=== PATIENT | female | born 1970 | race African-American/Black ===

== ENCOUNTER 2016-08-03 18:44 | Emergency (ER) | payer MEDICAID, OTHER ==
[~2016-08-03] VITALS: Ht 170.2 cm; Wt 109.2 kg
[~2016-08-03 18:44] MED LIST: NAPR500 PO
[2016-08-03 18:58] VITALS: BP 115/72; PULSE 91; RESP 16; TEMP 98.6; O2SAT 99
[2016-08-03 19:37] LABS: BLOOD, URINE NEG (NEG); GLUCOSE,URINE NEG (NEG); KETONE, URINE NEG (NEG); NITRITE,URINE NEG (NEG)
[2016-08-03 19:49] LABS: BACTERIA, URINE RARE /hpf; COMMENT (UR) CULT NOT INDICATED; CULTURE IF INDICATED CULT NOT INDICATED; RBC, URINE 0-3 /hpf (0-3); URINE COLOR YELLOW (YELLW/STRAW)
[2016-08-03] MEDS ORDERED: VITA500C9 CHEW (20:27)
[2016-08-03] MEDS ORDERED: MULTTAB67 PO (20:27)
[2016-08-03] MEDS ORDERED: CALC1WAF CHEW (20:27)
[2016-08-03] MEDS ORDERED: FERR1TAB36 PO (20:33)
[2016-08-03] MEDS ORDERED: VITA10002 PO (20:33)
[2016-08-03] MEDS ORDERED: NEXI20CA PO (20:33)
[2016-08-03] MEDS ORDERED: FOLI400T PO (20:33)
--- NOTE | 2016-08-03 20:35 | PD ---
HPI Chief Complaint: Flank/Kidney Pain Time Seen by Provider: 20:25 Travel History International Travel<30 days: No Contact w/Intl Traveler<30days: No Traveled to known affect area: No History of Present Illness HPI 46-year-old female complains of left flank pain. Patient states the pain started a week ago and is worse for the past 2 days. Patient states the pain is sharp pain localized to left flank area. Patient denies any pain radiation. She denies any nausea vomiting diarrhea. Patient denies any dysuria or frequency. Patient denies any vaginal discharge or bleeding. Patient states the pain is worse with movement. Patient states that the pain radiate down to the left hip area. On a scale of 1-10 the pain is an 8. PFSH Past Medical History Medical History: Denies Significant Hx Diminished Hearing: No Tetanus Vaccination: Unknown Influenza Vaccination: No ?: Not : 5 Para: 5 Past Surgical History Hysterectomy: Yes Social History Alcohol Use: No Tobacco Use: No Substance Use: No Allergies-Medications (Allergen,Severity, Reaction): Coded Allergies: Percocet (Verified Allergy, Mild, hives, 08/03/16) Reported Meds & Prescriptions Reported Meds & Active Scripts Active Reported Nexium (Esomeprazole DR) 20 Mg Capdr 20 Mg PO DAILY PRN Vitamin B-12 (Cyanocobalamin) 1,000 Mcg Tab 1,000 Mcg PO DAILY Folic Acid 400 Mcg Tab 400 Mcg PO DAILY Iron (Ferrous Sulfate) 325 Mg Tab 325 Mg PO DAILY Take Calcium Carbonate 500 Mg Wafr 500 Mg CHEW DAILY 500 mg calcium carbonate (200 mg elemental calcium) Vitamin C (Ascorbic Acid) 500 Mg Chew 500 Mg CHEW DAILY Multiple Vitamin 1 Tab 1 Tab PO DAILY Review of Systems General / Constitutional: No: Fever Eyes: No: Visual changes HENT: No: Headaches Cardiovascular: No: Chest Pain or Discomfort Respiratory: No: Shortness of Breath Gastrointestinal: No: Abdominal Pain Genitourinary: No: Dysuria Musculoskeletal: No: Pain Skin: No Rash Neurologic: No: Weakness Psychiatric: No: Depression Endocrine: No: Polydipsia Hematologic/Lymphatic: No: Easy Bruising Physical Exam Narrative GENERAL: Well-nourished, well-developed patient. SKIN: Warm and dry. HEAD: Normocephalic. EYES: No scleral icterus. No injection or drainage. NECK: Supple, trachea midline. No JVD or lymphadenopathy. CARDIOVASCULAR: Regular rate and rhythm without murmurs, gallops, or rubs. RESPIRATORY: Breath sounds equal bilaterally. No accessory muscle use. GASTROINTESTINAL: Abdomen soft, non-tender, nondistended. MUSCULOSKELETAL: No cyanosis, or edema. BACK: Patient has moderate tenderness and palpation left flank area, without obvious deformity. No CVA tenderness. Negative straight leg raising. Neurologic exam normal. Data Data Last Documented VS Vital Signs Date Time Temp Pulse Resp B/P Pulse Ox O2 Delivery O2 Flow Rate FiO2 08/03/16 21:25 88 16 147/84 100 Room Air 08/03/16 18:58 98.6 Orders Urinalysis - C+S If Indicated (08/03/16 19:19) Ct Abd/Pel W/O Iv Contrast (08/03/16 20:30) Labs Laboratory Tests Test 08/03/16 19:22 Urine Color YELLOW Urine Turbidity CLEAR Urine pH 6.0 Urine Specific [place] 1.030 Urine Protein NEG mg/dL Urine Glucose (UA) NEG mg/dL Urine Ketones NEG mg/dL Urine Occult Blood NEG Urine Nitrite NEG Urine Bilirubin NEG Urine Leukocyte Esterase TRACE Urine RBC 0-3 /hpf Urine WBC 3-5 /hpf Urine Squamous Epithelial 6-8 /hpf Cells Urine Bacteria RARE /hpf Microscopic Urinalysis Comment CULT NOT INDICATED MDM Medical Decision Making Medical Screen Exam Complete: Yes Emergency Medical Condition: Yes Interpretation(s) Last Impressions Abdomen/Pelvis CT 08/03/162029 Signed Impressions: Service Date/Time: Wednesday, August 03, 2016 21:11 - CONCLUSION: 1. No renal calculi or hydronephrosis. 2. Small right adnexal cyst. 3. Nonspecific hepatic low density measuring 1.3 cm. Vu Beauchamp MD 21:41 PM. UA is negative. Differential Diagnosis Differential diagnosis including: Musculoskeletal, nephrolithiasis, pyelonephritis. Narrative Course 46-year-old female with left flank pain. Diagnosis Primary Impression: Lumbar strain Qualified Code: S39.012A - Lumbar strain, initial encounter Patient Instructions: General Instructions Additional Instructions: Take medication as needed for pain. Follow-up with personal physician. Return if worse. Med/Other Pt SpecificInfo: Prescription(s) given Scripts Methocarbamol (Robaxin)750 Mg Smj125 Mg PO QID #40 TAB Prov:Linden Valerio MD 08/03/16 Meloxicam (Mobic)15 Mg Tab15 Mg PO DAILY #30 TAB Prov:Linden Valerio MD 08/03/16 Disposition: 01 DISCHARGE HOME Condition: Stable Linden Valerio MD Aug 03, 2016 20:35
[2016-08-03 21:25] VITALS: BP 147/84; PULSE 88; RESP 16; O2SAT 100
--- NOTE | 2016-08-03 21:28 | RADHPO ---
EXAM DATE/TIME: 08/03/2016 21:11 [place] COMPARISON: No previous studies available for comparison. INDICATIONS : Left flank pain for one week. ORAL CONTRAST: No oral contrast ingested. RADIATION DOSE: 26.38 CTDIvol (mGy) MEDICAL HISTORY : None SURGICAL HISTORY : Hysterectomy. ENCOUNTER: Initial ACUITY: 1 week PAIN SCALE: 5/10 LOCATION: Left flank TECHNIQUE: Volumetric scanning of the abdomen and pelvis was performed. Using automated exposure control and ad justment of the mA and/or kV according to patient size, radiation dose was kept as low as reasonably achievable to obtain optimal diagnostic quality images. FINDINGS: LOWER LUNGS: The visualized lower lungs are clear. LIVER: Homogeneous density without lesion. There is no dilation of the biliary tree. No calcified gallston es. 1.3 cm lesion in the pineal segment left lobe. SPLEEN: Normal size without lesion. PANCREAS: Within normal limits. KIDNEYS: Normal in size and shape. There is no mass, stone, or hydronephrosis. ADRENAL GLANDS: Within normal limits. VASCULAR: There is no aortic aneurysm. BOWEL/MESENTERY: The stomach, small bowel, and colon demonstrate no acute abnormality. There is no free intraperitone al air or fluid. ABDOMINAL WALL: Within normal limits. RETROPERITONEUM: There is no lymphadenopathy. BLADDER: No wall thickening or mass. REPRODUCTIVE: Small cyst right adnexa measures 3.1 cm. INGUINAL: There is no lymphadenopathy or hernia. MUSCULOSKELETAL: Within normal limits for patient age. CONCLUSION: 1. No renal calculi or hydronephrosis. 2. Small right adnexal cyst. 3. Nonspecific hepatic low density measuring 1.3 cm. Vu Beauchamp MD on August 03, 2016 at 21:24 Board Certified Radiologist. This report was verified electronically.
[2016-08-03] MEDS ORDERED: ROBA750T PO (21:47)
[2016-08-03] MEDS ORDERED: MOBI15TA PO (21:47)
[2016-08-03] MEDS ORDERED: KETOROLAC TROMETHAMINE 60 MG/2 ML (IM) VIAL IM ONE (22:00)
== END 2016-08-03 22:16 | disposition home or self-care (01) ==
LOC: PHED 18:44
DX: S39.012A Strain of muscle, fascia and tendon of lower back, initial encounter (principal); Y93.9 Activity, unspecified
CPT/HCPCS: 74176; 81001; 96372; 99284; J1885

== ENCOUNTER 2017-07-02 07:44 | Emergency (ER) | payer MEDICAID, OTHER ==
[~2017-07-02] VITALS: Ht 170.2 cm; Wt 110.0 kg
[~2017-07-02 07:44] MED LIST changes: +CALC1WAF CHEW; +FERR1TAB36 PO; +FOLI400T PO; +MOBI15TA PO; +MULTTAB67 PO; -NAPR500 PO; +NEXI20CA PO; +ROBA750T PO; +VITA10002 PO; +VITA500C9 CHEW
[2017-07-02 07:46] VITALS: BP 138/79; PULSE 83; RESP 14; TEMP 97.8; O2SAT 100
[2017-07-02] MEDS ORDERED: IBUP1TAB7 PO ×2 (08:06→08:09)
[2017-07-02] MEDS ORDERED: AZIT500T2 PO (08:09)
[2017-07-02] MEDS ORDERED: BENZ100 PO (08:09)
--- NOTE | 2017-07-02 08:10 | PD ---
HPI Chief Complaint: Cold / Flu Symptoms Time Seen by Provider: 08:05 Travel History International Travel<30 days: No Contact w/Intl Traveler<30days: No Traveled to known affect area: No History of Present Illness HPI 47-year-old female presents to the emergency Department with complaint of nasal congestion, throat irritation, bilateral ear pressure, headache 1 week. Onset of cough in the last few days and cough is occasional and feels like she's been wheezing. Denies chest tightness, shortness of breath. Denies fever, vomiting. Works without her with similar symptoms. Has been taking BC powder, Mucinex, [place] for symptom management. Symptoms are mild in severity. BC powder relieve his headache. No known aggravating factors.. Allergies to oxycodone, acetaminophen. No primary care provider. Denies significant past medical history. Has no other medical complaints. No other modifying factors or associated signs and symptoms. PFSH Past Medical History Diminished Hearing: No : 5 Para: 5 Past Surgical History Hysterectomy: Yes Social History Alcohol Use: No Tobacco Use: No Substance Use: No Allergies-Medications (Allergen,Severity, Reaction): Coded Allergies: acetaminophen (Unverified Allergy, Mild, hives, 07/02/17) oxycodone (Unverified Allergy, Mild, hives, 07/02/17) Reported Meds & Prescriptions Reported Meds & Active Scripts Active Tessalon Perles (Benzonatate) 100 Mg Cap 100 Mg PO TID PRN 3 Days Azithromycin 500 Mg Tab 500 Mg PO DAILY Ibuprofen 800 Mg Tab 800 Mg PO Q6HR PRN Review of Systems Except as stated in HPI: all other systems reviewed are Neg Physical Exam Narrative GENERAL: Well-nourished, well-developed black female patient, in no acute distress; afebrile, nontoxic-appearing SKIN: Warm and dry. No rash. HEAD: Atraumatic. Normocephalic. EYES: Pupils equal and round. No scleral icterus. No injection or drainage. ENT: Mucosa pink and moist. No erythema or exudates. No uvular edema. No uvular , palatal, or tonsillar deviation. Airway patent. EARS: Bilateral pinnae and external canals appear within normal limits. Bilateral tympanic membranes without erythema, dullness or perforation. NECK: Trachea midline. No lymphadenopathy. CARDIOVASCULAR: Regular rate and rhythm. No murmur appreciated. RESPIRATORY: No accessory muscle use. Clear to auscultation. Breath sounds equal bilaterally. No retractions or tachypnea. GASTROINTESTINAL: Abdomen soft, non-tender, nondistended. Hepatic and splenic margins not palpable. Bowel sounds are active 4 quadrants. MUSCULOSKELETAL: No obvious deformities. No clubbing. No cyanosis. No edema. NEUROLOGICAL: Awake and alert. Oriented 3. No obvious cranial nerve deficits. Motor grossly within normal limits. Normal speech. Moves all extremities. 5/5 strength to all extremities. PSYCHIATRIC: Appropriate mood and affect; insight and judgment normal. Data Data Last Documented VS Vital Signs Date Time Temp Pulse Resp B/P (MAP) Pulse Ox O2 Delivery O2 Flow Rate FiO2 07/02/17 07:46 97.8 83 14 138/79 (98) 100 Room Air Orders Orders Ed Discharge Order (07/02/17 08:10) [facility] Medical Decision Making Medical Screen Exam Complete: Yes Emergency Medical Condition: Yes Medical Record Reviewed: Yes Differential Diagnosis Viral illness, upper respiratory infection, bronchitis, pneumonia, influenza Narrative Course 47-year-old female physical examination back consistent with symptoms of URI 1 week. Lungs are clear and equal throughout without wheezing. Afebrile and nontoxic-appearing. Denies fever, vomiting. I will prescribe antibiotics secondary to length of illness. Azithromycin, Tessalon Perles, ibuprofen prescribed for home. Work release provided. Instructed patient to follow up with primary care provider. Patient verbalizes understanding and agreement with treatment plan. Patient is medically cleared and stable for discharge. Discussed reasons to return to the emergency department. Patient agrees with treatment plan. The patients vital signs are stable and the patient is stable for outpatient follow-up and treatment. Patient discharged home, stable and in no acute distress. Diagnosis Primary Impression: URI (upper respiratory infection) Qualified Codes: J06.9 - Acute upper respiratory infection, unspecified Referrals: [facility] Primary Care Physician Patient Instructions: Cold Symptoms (ED), General Instructions, Safe Use of Cough and Cold Medicines (ED), Upper Respiratory Infection (ED) Departure Forms: Tests/Procedures, Work Release Enter return to work date: Jul 04, 2017 Additional Instructions: Ibuprofen or Tylenol as directed and as needed to reduce fever; may alternate ibuprofen and Tylenol as needed every 3 hours to minimize fever [id number] cold/flu medications as directed and as needed for symptom management Get plenty of sleep/rest Drink plenty of fluids to prevent dehydration; such as Gatorade, Powerade, Pedialyte [place] diet to encourage nutrition such as crackers, fruit, applesauce, toast, soup etc. Use an air humidifier/turn off ceiling fans Follow-up with your primary care provider within 1 day Return immediately to the emergency department with worsening of symptoms Med/Other Pt SpecificInfo: Prescription(s) given Scripts Benzonatate (Tessalon Perles) 100 Mg Cap 100 MG PO TID Y for COUGH for 3 Days, CAP 0 Refills Prov: Albertina Heller 07/02/17 Azithromycin (Azithromycin) 500 Mg Tab 500 MG PO DAILY for Infection, #5 TAB 0 Refills Prov: Albertina Heller 07/02/17 Ibuprofen (Ibuprofen) 800 Mg Tab 800 MG PO Q6HR Y for PAIN, #20 TAB 0 Refills Prov: Albertina Heller 07/02/17 Disposition: 01 DISCHARGE HOME Condition: Stable Albertina Heller Jul 02, 2017 08:10
== END 2017-07-02 08:40 | disposition home or self-care (01) ==
LOC: NEPD 07:44
DX: J06.9 Acute upper respiratory infection, unspecified (principal)
CPT/HCPCS: 99284